=== PATIENT | male | born 1970 | race Caucasian/White ===

== ENCOUNTER 2021-03-01 13:26 | Emergency (ER) | payer SELFPAY ==
[~2021-03-01] VITALS: Ht 182.9 cm; Wt 90.0 kg
[2021-03-01 13:44] VITALS: BP 119/80
== END 2021-03-01 14:00 | disposition home or self-care (01) ==
LOC: ED 13:30
DX: Z20.822 Contact with and (suspected) exposure to COVID-19 (principal)
CPT/HCPCS: 99283; U0003; U0005